=== PATIENT | female | born 1955 | race Caucasian/White ===

== ENCOUNTER 2020-04-02 15:29 | Emergency (ER) | payer BC ==
[~2020-04-02] VITALS: Ht 167.6 cm; Wt 77.3 kg
[2020-04-02 16:00] VITALS: TEMP 97
[2020-04-02] MEDS ORDERED: NORCO 325 MG-7.1 TAB PO (17:55)
[2020-04-02 18:04] VITALS: BP 144/70; PULSE 76
== END 2020-04-02 18:04 | disposition home or self-care (01) ==
LOC: COL.ER 15:29
DX: S52.602A Unspecified fracture of lower end of left ulna, initial encounter for closed fracture (principal); S52.502A Unspecified fracture of the lower end of left radius, initial encounter for closed fracture; F17.210 Nicotine dependence, cigarettes, uncomplicated; W01.198A Fall on same level from slipping, tripping and stumbling with subsequent striking against other object, initial encounter; Y92.009 Unspecified place in unspecified non-institutional (private) residence as the place of occurrence of the external cause

== ENCOUNTER 2020-04-07 21:26 | Emergency (ER) | payer BC ==
[~2020-04-07] VITALS: Ht 167.6 cm; Wt 77.3 kg
[~2020-04-07 21:26] MED LIST: NORCO 325 MG-7.1 TAB PO
[2020-04-07 22:09] VITALS: BP 184/94; TEMP 97.1
[2020-04-07 23:10] VITALS: PULSE 70
== END 2020-04-07 23:10 | disposition home or self-care (01) ==
LOC: COL.ER 21:26
DX: S52.502D Unspecified fracture of the lower end of left radius, subsequent encounter for closed fracture with routine healing (principal); S52.602D Unspecified fracture of lower end of left ulna, subsequent encounter for closed fracture with routine healing; W19.XXXD Unspecified fall, subsequent encounter

== ENCOUNTER 2023-09-07 20:40 | Emergency (ER) | payer BC ==
[~2023-09-07] VITALS: Ht 165.1 cm; Wt 79.5 kg
[2023-09-07 20:52] VITALS: TEMP 97.9
[2023-09-07] MEDS ORDERED: NORCO 325 MG-51 TAB PO (21:56)
[2023-09-07] MEDS ORDERED: Home HYDROcodone/Acetaminophen 5/325 MG #4 TABS/PACK PO ONE (22:00)
[2023-09-07 22:39] VITALS: BP 205/108; PULSE 90
== END 2023-09-07 22:40 | disposition home or self-care (01) ==
LOC: COL.ER 20:40
DX: S42.292A Other displaced fracture of upper end of left humerus, initial encounter for closed fracture (principal); W10.9XXA Fall (on) (from) unspecified stairs and steps, initial encounter